=== PATIENT | female | born 1955 | race African-American/Black ===

== ENCOUNTER 2017-01-12 13:33 | Emergency (ER) | payer SELFPAY ==
[~2017-01-12] VITALS: Ht 167.6 cm; Wt 84.5 kg
[2017-01-12 13:35] VITALS: BP 125/83
[2017-01-12] MEDS ORDERED: CYCLOBENZAPRINE 10 MG TABLET ONE (14:21)
[2017-01-12] MEDS ORDERED: CYCLOBENZAPRINE 10 MG TABLET PO ONE (14:30)
[2017-01-12 14:37] LABS: HEMATOCRIT 46.2 % (34.6-47.8); HEMOGLOBIN 16.1 g/dL (11.7-16.4); WHITE BLOOD COUNT 8.8 x10^3/uL (3.4-10)
[2017-01-12 14:49] LABS: BLOOD UREA NITROGEN 13 mg/dL (7-18)
[2017-01-12] MEDS ORDERED: IBUPROFEN 200 MG TABLET ONE (15:00)
[2017-01-12] MEDS ORDERED: IBUPROFEN 200 MG TABLET PO ONE (15:00)
[2017-01-12] MEDS ORDERED: SODIUM CHLORIDE 0.9% 1,000 ML IV ONE (15:32)
[2017-01-12] MEDS ORDERED: INSULIN REGULAR 100 UNITS/ML, 3ML VIAL ONE (15:53)
[2017-01-12] MEDS ORDERED: INSULIN REGULAR 100 UNITS/ML, 3ML VIAL IVPush ONE (16:00)
[2017-01-12] MEDS ORDERED: SODIUM CHLORIDE 0.9% 1,000ML IVBOLUS ONE (16:00)
[2017-01-12] MEDS ORDERED: SODIUM CHLORIDE FLUSH 10ML SYR IVF ONE (16:00)
== END 2017-01-12 17:39 | disposition home or self-care (01) ==
LOC: ED 17:14
DX: S39.012A Strain of muscle, fascia and tendon of lower back, initial encounter (principal); S93.602A Unspecified sprain of left foot, initial encounter; E11.65 Type 2 diabetes mellitus with hyperglycemia; X50.1XXA Overexertion from prolonged static or awkward postures, initial encounter; Y93.89 Activity, other specified; Y92.89 Other specified places as the place of occurrence of the external cause; Y99.8 Other external cause status
CPT/HCPCS: 36415; 72110; 73630; 80048; 82010; 82040; 82962; 85025; 96361; 96374; 99285; J7030

== ENCOUNTER → 2018-08-11 | Outpatient (CLI) | payer MEDICARE | END | disposition home or self-care (01) | LOC: CFH 12:31 | PROVIDERS: ATTEND Internal Medicine | DX: Z13.820 Encounter for screening for osteoporosis (principal) | CPT/HCPCS: 77080 ==

== ENCOUNTER → 2018-09-08 | Outpatient (CLI) | payer MEDICARE | END | disposition home or self-care (01) | LOC: CFH 14:42 | PROVIDERS: ATTEND Internal Medicine | DX: N64.89 Other specified disorders of breast (principal); Z80.3 Family history of malignant neoplasm of breast | CPT/HCPCS: 76642; 77066; G0279 ==

== ENCOUNTER 2018-10-10 14:21 | Outpatient (CLI) | payer MEDICARE | END 2018-10-10 23:59 | disposition home or self-care (01) | LOC: CFH 14:21 | PROVIDERS: ATTEND Internal Medicine | DX: M19.021 Primary osteoarthritis, right elbow (principal); M77.9 Enthesopathy, unspecified ==

== ENCOUNTER 2019-10-22 16:31 | Emergency (ER) | payer MEDICARE ==
[~2019-10-22] VITALS: Ht 167.6 cm; Wt 88.8 kg
--- NOTE | 2019-10-22 16:42 | NUR ---
PT TO ED WITH STATED FOREIGN BODY IN THROAT, STATES SHE THINKS IT IS CHICKEN FROM LUNCH. PT PLACED ON MONITOR, SPO2 98%. PT ANXIOUS. NO NEEDS AT THIS TIME. WANTS RN TO CALL SON WHO IS IN THE WAITING ROOM WITH HER PHONE.
--- NOTE | 2019-10-22 17:24 | NUR ---
TRIED TO CALL PTS PHONE WHICH IS IN POSSESSION OF SON X2 PER PT REQUEST, PHONE TO . CALLED PER PT REQUEST, IN [place] AND CANNOT CONTACT SON EITHER. PTS AWARE PT IS HERE AND WILL CONTINUE TO TRY TO GET AHOLD OF SON
--- NOTE | 2019-10-22 17:45 | NUR ---
PT RETURNED FROM IMAGING
[2019-10-22] MEDS ORDERED: GLUCAGON 1 MG ONE (18:18)
[2019-10-22] MEDS ORDERED: ONDANSETRON 2MG/ML, 2ML ONE ×2 (18:18→19:42)
--- NOTE | 2019-10-22 18:26 | NUR ---
PT MEDICATED PER MAR
[2019-10-22] MEDS ORDERED: GLUCAGON 1 MG IVPush ONE (18:30)
[2019-10-22] MEDS ORDERED: ONDANSETRON 2MG/ML, 2ML IVPush ONE ×2 (18:30→20:00)
--- NOTE | 2019-10-22 18:48 | NUR ---
PT DRANK CUP OF WATER WITH NO DIFFICULTY, PT BURPING FREQUENTLY. PT GIVEN SPRITE PER MD.
--- NOTE | 2019-10-22 18:52 | NUR ---
REPORT TO GERRI SALDIVAR
[2019-10-22] MEDS ORDERED: MORPHINE SULFATE 4 MG/ML, 1ML ONE (19:42)
[2019-10-22] MEDS ORDERED: SODIUM CHLORIDE 0.9% 1,000ML IVBOLUS ONE (20:00)
[2019-10-22] MEDS ORDERED: MORPHINE SULFATE 4 MG/ML, 1ML IVPush PRN (20:00)
[2019-10-22 20:21] LABS: BASOPHILS # (AUTO) 0.03 x10^3/uL (0-0.1); BASOPHILS % (AUTO) 0 % (0-1); EOSINOPHILS # (AUTO) 0.26 x10^3/uL (0-0.4); EOSINOPHILS % (AUTO) 2 % (1-7); LYMPHOCYTES # (AUTO) 2.58 x10^3/uL (1-3.4); LYMPHOCYTES % (AUTO) 22 % (22-44); MD NO; MEAN CORPUSCULAR HEMOGLOBIN 32.4 pg (27.0-34.8); MEAN CORPUSCULAR HGB CONC 33.6 g/dL (32.4-35.8); MEAN CORPUSCULAR VOLUME 96.4 fL (80-100); MEAN PLATELET VOLUME 7.7 fL (7.4-10.4); MONOCYTES # (AUTO) 0.66 x10^3/uL (0.2-0.8); MONOCYTES % (AUTO) 6 % (2-9); NEUTROPHILS # (AUTO) 8.13 x10^3/uL (1.8-6.8); NEUTROPHILS % (AUTO) 70 % (42-75); PLATELET COUNT 255 x10^3/uL (130-400); RED BLOOD COUNT 4.64 x10^6/uL (3.82-5.3); RED CELL DISTRIBUTION WIDTH 13.2 % (9.6-15.2)
[2019-10-22 20:24] LABS: ALANINE AMINOTRANSFERASE 26 U/L (12-78); ALBUMIN 3.2 g/dL (3.4-5.0); ANION GAP 5 mmol/L (5-15); CALCIUM 7.9 mg/dL (8.5-10.1); CHLORIDE 110 mmol/L (98-107); CREATININE 0.92 mg/dL (0.55-1.02)
[2019-10-22 20:26] LABS: ALKALINE PHOSPHATASE 129 U/L (45-117); BILIRUBIN,TOTAL 0.2 mg/dL (0.2-1.0); TOTAL PROTEIN 7.4 g/dL (6.4-8.2)
[2019-10-22 21:37] VITALS: BP 134/80
== END 2019-10-22 21:39 | disposition home or self-care (01) ==
LOC: ED 17:27
DX: T18.128A Food in esophagus causing other injury, initial encounter (principal); R06.02 Shortness of breath; M54.2 Cervicalgia; E11.9 Type 2 diabetes mellitus without complications; X58.XXXA Exposure to other specified factors, initial encounter; Y93.89 Activity, other specified; Y92.89 Other specified places as the place of occurrence of the external cause; Y99.8 Other external cause status
CPT/HCPCS: 36415; 70490; 71045; 74021; 80053; 83690; 85025; 96361; 96374; 96375; 96376; 99285; J1610; J2270; J2405; J7030

== ENCOUNTER → 2020-07-08 | Outpatient (CLI) | payer MEDICARE ==
[~2020-07-08] MED LIST: OMNIPAQUE 350 MG/ML, 100ML BOTTLE ONE
== END | disposition home or self-care (01) ==
LOC: CFH 11:23
PROVIDERS: ATTEND Surgery
DX: D25.9 Leiomyoma of uterus, unspecified (principal); K44.9 Diaphragmatic hernia without obstruction or gangrene; N28.1 Cyst of kidney, acquired; K80.20 Calculus of gallbladder without cholecystitis without obstruction; N85.2 Hypertrophy of uterus
CPT/HCPCS: 74177; Q9967